=== PATIENT | male | born 1955 | race Caucasian/White ===

== ENCOUNTER 2020-08-16 08:20 | Day surgery (SDC) | payer OTHER, SELFPAY ==
[2020-08-10 16:06] VITALS: BMI 23.6
--- NOTE | 2020-08-15 09:02 | HO.ANESPROP2 ---
Documented by User: Jovita Rachel 08/15/20 09:03 HPI - Anesthesia Eval Consult details Narrative: 64yo M for Colonoscopy [facility] Past Medical History Medical History Anxiety Asthma Carpal tunnel syndrome Hx of pneumothorax Psoriasis Surgical History Surgical History History of carpal tunnel release History of esophagogastroduodenoscopy (EGD) History of surgery Hx of arthroscopy of left knee Hx of colonoscopy Social History Social History Smoking Status: Former smoker Smoking Quit Date: Use of substances other than those prescribed or required for medical reasons: No Advance Directives: No Advance Directives Information Provided: No Advance Directives on File: No Recently lost weight without trying: No Meds Allergies Allergy/AdvReac Type Severity Reaction Status Date / Time codeine [CODEINE] Allergy Intermediate Dizziness Verified 08/16/20 09:03 Penicillins [PENICILLINS] Allergy Intermediate RASH Verified 08/16/20 09:03 Home Medications Medication Instructions Recorded Confirmed Last Taken Type beclomethasone dipropionate [Qvar 1 puff PO DAILY 08/10/20 08/10/20 Unknown History RediHaler] celecoxib 1 cap PO BID 08/10/20 08/10/20 Unknown History cholecalciferol (vitamin D3) 25 mcg PO DAILY 08/10/20 08/10/20 Unknown History [Vitamin D3] lorazepam 1 tab PO BID PRN 08/10/20 08/10/20 Unknown History Exam Exam Date and Time: August 15, 2020 09 Height,Weight and Vital Signs: Height 5 ft 8.5 in Weight 71.668 kg Assessment and Plan Assessment Anesthesia Assessment: Chart Reviewed Documented by User: Rocio Rivero 08/16/20 09:15 [facility] Past Medical History Medical History Anxiety Asthma Carpal tunnel syndrome Hx of pneumothorax Psoriasis Surgical History Surgical History History of carpal tunnel release History of esophagogastroduodenoscopy (EGD) History of surgery Hx of arthroscopy of left knee Hx of colonoscopy Social History Social History Smoking Status: Former smoker Smoking Quit Date: Use of substances other than those prescribed or required for medical reasons: No Advance Directives: No Advance Directives Information Provided: No Advance Directives on File: No Recently lost weight without trying: No Meds Allergies Allergy/AdvReac Type Severity Reaction Status Date / Time codeine [CODEINE] Allergy Intermediate Dizziness Verified 08/16/20 09:03 Penicillins [PENICILLINS] Allergy Intermediate RASH Verified 08/16/20 09:03 Home Medications Medication Instructions Recorded Confirmed Last Taken Type beclomethasone dipropionate [Qvar 1 puff PO DAILY 08/10/20 08/10/20 Unknown History RediHaler] celecoxib 1 cap PO BID 08/10/20 08/10/20 Unknown History cholecalciferol (vitamin D3) 25 mcg PO DAILY 08/10/20 08/10/20 Unknown History [Vitamin D3] lorazepam 1 tab PO BID PRN 08/10/20 08/10/20 Unknown History Exam Airway Mallampati Class: II TM Dist: >3cm Neck ROM: Full
[2020-08-16 09:11] VITALS: BP 110/48; PULSE 82; RESP 20; TEMP 36.9; O2SAT 97
[2020-08-16] MEDS: Lactated Ringers 1,000 ML 100 ML IVCONT (09:35)
--- NOTE | 2020-08-16 10:08 | MHC.SHP ---
Pre-Procedural Eval Section A The patient is an INPATIENT: No Changes since office visit: Yes Cold of Flu in the past 2 weeks, Yes New Medical Problems, Yes Changes in Medication and Yes Patient answered all questions The History & Physical has been completed within 30 days and I have reviewed it.: No Section B Chief Complaint: screening Allergies: Allergies Allergy/AdvReac Type Severity Reaction Status Date / Time codeine [CODEINE] Allergy Intermediate Dizziness Verified 08/16/20 09:03 Penicillins [PENICILLINS] Allergy Intermediate RASH Verified 08/16/20 09:03 Plan I have reviewed the history and physical and performed a pertinent physical examination on my patient. No changes have occurred unless specified.
[2020-08-16 10:38] VITALS: BP 97/38; PULSE 67; RESP 12; TEMP 37.1; O2SAT 98
--- NOTE | 2020-08-16 10:42 | PM.OP ---
Brief Operative Note Date of Service: 08/16/20 Pre-op diagnosis: screening, hx polyps Post-op diagnosis: same Procedure: colonoscopy Surgeon: Ti Nix Anesthesia: MAC Estimated blood loss (mL): 0 Pathology: none sent Condition: stable Disposition: PACU
[2020-08-16 10:53] VITALS: BP 111/70; PULSE 67; RESP 12; TEMP 37.1; O2SAT 100
--- NOTE | 2020-08-16 11:01 | OP_ITS ---
SURGEON: Ti Nix MD INDICATIONS: Colon cancer screening and prior history of adenomatous colon polyps. PREOPERATIVE DIAGNOSIS: POSTOPERATIVE DIAGNOSIS: PROCEDURE PERFORMED: Colonoscopy to the terminal ileum. ESTIMATED BLOOD LOSS: COMPLICATIONS: ANESTHESIA: ASSISTANTS: SPECIMENS: MEDICATIONS: Monitored anesthesia care. DESCRIPTION OF PROCEDURE: History and physical performed. The risks and benefits of the procedure were explained to the patient. Informed consent was obtained. The patient was placed in a left lateral decubitus position. A digital rectal exam was performed and was found to be normal. The Olympus pediatric video colonoscope was introduced into the rectum and advanced to the cecum without difficulty. The cecum was identified by transillumination, palpation, and identification of ileocecal valve. Examination was performed and the scope was removed. He tolerated the procedure well and was taken to recovery area in stable condition. FINDINGS: The terminal ileum was examined and appeared normal. The visualized colonic mucosa was normal. The quality of the prep was good. No polyps were identified. There was moderate sigmoid diverticulosis. Retroflexed examination showed hypertrophic anal papillae. IMPRESSION: Negative screening colonoscopy. RECOMMENDATIONS: 1. Follow up as needed. 2. Repeat colonoscopy should be considered in 5 years due to prior history of adenomatous colon polyps. MD RYAN Rivera/SUSANNAH / [id number]
== END 2020-08-16 11:22 | disposition home or self-care (01) ==
PROVIDERS: PCP Internal Medicine; Visit Provider Internal Medicine Gastroenterology
PROC: 0DJD8ZZ Inspection of Lower Intestinal Tract, Via Natural or Artificial Opening Endoscopic (ICD-10-PCS; CPT 45378; principal; 2020-08-16 09:30)
DX: Z12.11 Encounter for screening for malignant neoplasm of colon (principal); Z86.010 Personal history of colon polyps; K57.30 Diverticulosis of large intestine without perforation or abscess without bleeding; K62.89 Other specified diseases of anus and rectum; J45.909 Unspecified asthma, uncomplicated; L40.50 Arthropathic psoriasis, unspecified; Z87.09 Personal history of other diseases of the respiratory system; Z79.51 Long term (current) use of inhaled steroids; Z79.899 Other long term (current) drug therapy; Z88.0 Allergy status to penicillin; Z88.8 Allergy status to other drugs, medicaments and biological substances; Z87.891 Personal history of nicotine dependence
CPT/HCPCS: 45378